=== PATIENT | male | born 1990 | race Caucasian/White ===

== ENCOUNTER → 2022-03-26 | Emergency (ER) | payer MEDICAID ==
[~2022-03-26] VITALS: Ht 182.9 cm; Wt 65.0 kg
[~2022-03-26] MED LIST: LIDOCAINE 2%/EPI 1:100,000 inj. Multi-dose 20 ML VIAL IJ ONE; NO HOME MEDS; SULF1TAB49 PO; TETanus/Pertussis (Acell)/Diphther VAC/PF (Tdap-Adult) 0.5ml syringe IMVAC ONE; bacitracin 15gm ointment TP ONE
[2022-03-26 11:03] VITALS: BP 139/57
--- NOTE | 2022-03-26 14:59 | NUR ---
numbing injection administered by provider.
== END | disposition home or self-care (01) ==
LOC: ER 10:51
DX: S51.812A Laceration without foreign body of left forearm, initial encounter (principal); W45.8XXA Other foreign body or object entering through skin, initial encounter; Y93.89 Activity, other specified; Y92.89 Other specified places as the place of occurrence of the external cause; Y99.8 Other external cause status
CPT/HCPCS: 12004; 90471; 90715; 99283; A6258; A6449

== ENCOUNTER 2022-04-08 10:44 | Emergency (ER) | payer MEDICAID ==
[~2022-04-08] VITALS: Ht 182.9 cm; Wt 75.0 kg
[~2022-04-08 10:44] MED LIST changes: -LIDOCAINE 2%/EPI 1:100,000 inj. Multi-dose 20 ML VIAL IJ ONE; -SULF1TAB49 PO; -TETanus/Pertussis (Acell)/Diphther VAC/PF (Tdap-Adult) 0.5ml syringe IMVAC ONE; -bacitracin 15gm ointment TP ONE
[2022-04-08 11:08] VITALS: BP 125/75
--- NOTE | 2022-04-08 11:51 | NUR ---
Pt came here for stable removal of his cedric on his left forearm. Waqar, EMT at bedside removed ther cedric. Pt alert oriented x 4 no signs of distress. Incision site looks good, no sign of infection noted.
== END 2022-04-08 11:58 | disposition home or self-care (01) ==
LOC: ER 10:44
DX: S51.812D Laceration without foreign body of left forearm, subsequent encounter (principal); F32.9 Major depressive disorder, single episode, unspecified; Z79.899 Other long term (current) drug therapy; X58.XXXD Exposure to other specified factors, subsequent encounter
CPT/HCPCS: 99281; A6258